=== PATIENT | female | born 1940 | race Caucasian/White ===

== ENCOUNTER 2018-09-03 11:30 | Inpatient (IN) | payer OTHER ==
[~2018-09-03] VITALS: Ht 157.5 cm; Wt 64.9 kg
[2018-09-03] MEDS ORDERED: COZAAR25 MG PO (14:08)
[2018-09-03] MEDS ORDERED: CALTRATE 600+D1 EACH PO (14:09)
[2018-09-03] MEDS ORDERED: ASA81 MG PO (14:09)
[2018-09-03] MEDS ORDERED: CENTRUM SILVER1 EAC2 PO (14:09)
[2018-09-03] MEDS ORDERED: PROTONIX40 MG PO (14:09)
[2018-09-03] MEDS ORDERED: ZANTAC300 MG PO (14:09)
== END 2018-09-11 14:22 | disposition home or self-care (01) | DRG 658 ==
LOC: SURG 14:00 → O/R 09-08 05:35 → SURH 09-08 05:35
PROVIDERS: Surgery; ADMIT Urology
PROC: 0TT00ZZ Resection of Right Kidney, Open Approach (ICD-10-PCS; principal; 2018-09-08 07:00)
PROC: 0FT40ZZ Resection of Gallbladder, Open Approach (ICD-10-PCS; 2018-09-08 07:00)
DX: C65.1 Malignant neoplasm of right renal pelvis (principal); K81.1 Chronic cholecystitis; I10 Essential (primary) hypertension